=== PATIENT | female | born 1955 | race Caucasian/White ===

== ENCOUNTER 2017-08-04 23:44 | Emergency (ER) | payer SELFPAY ==
[~2017-08-04] VITALS: Ht 167.6 cm; Wt 73.0 kg
[2017-08-05 01:09] LABS: BASOPHILS % 0.5 % (0.0-2.0); EOSINOPHILS % 0.7 % (0.0-5.0); HEMATOCRIT. 39.4 % (36.0-48.0); HEMOGLOBIN. 13.2 g/dL (12.0-16.0); LYMPHOCYTES % 17.2 % (20.0-50.0); MEAN CORPUSCULAR HEMOGLOBIN 31.8 pg (28.0-32.0); MEAN CORPUSCULAR VOLUME 94.5 fL (81.0-99.0); MONOCYTES % 6.1 % (2.0-8.0); NEUTROPHILS % 75.5 % (40.0-76.0); PLATELET 324 x1000/uL (130-400); RED BLOOD CELL COUNT 4.16 mill/uL (4.2-5.4); RED CELL DISTRIBUTION WIDTH 13.5 % (11.6-14.6)
[2017-08-05 01:14] LABS: CHLORIDE 109 mEq/L (98-107)
[2017-08-05 01:19] LABS: PROTHROMBIN TIME 10.7 sec (9.4-11.6)
[2017-08-05 01:24] LABS: CARBON DIOXIDE 22 mEq/L (21-32); ETHANOL BLOOD 281 mg/dL
[2017-08-05 02:02] VITALS: BP 133/91
== END 2017-08-05 02:06 | disposition home or self-care (01) ==
LOC: ER 23:45
DX: S01.81XA Laceration without foreign body of other part of head, initial encounter (principal); R55 Syncope and collapse; W01.0XXA Fall on same level from slipping, tripping and stumbling without subsequent striking against object, initial encounter; Y93.89 Activity, other specified; Y92.252 Music hall as the place of occurrence of the external cause; R94.31 Abnormal electrocardiogram [ECG] [EKG]; I45.10 Unspecified right bundle-branch block; Z85.3 Personal history of malignant neoplasm of breast; I51.7 Cardiomegaly
CPT/HCPCS: 36415; 80053; 85025; 85610; 93005; 99285; G0482; Z7610